=== PATIENT | female | born 1960 | race Two or more races ===

== ENCOUNTER → 2020-11-13 | Outpatient (CLI) | payer OTHER ==
[~2020-11-13] MED LIST: LIDOCAINE 1% Multi-Dose 20 ML VIAL. INJ ONE
--- NOTE | 2020-11-13 11:01 | RAD ---
EXAM: Sonographic guided right breast biopsy; sonographic guided right axillary lymph node biopsy; ri ght breast biopsy clip placement; right breast post plasty mammogram. HISTORY: 60-year-old female presents for sonographic guided biopsy of a right breast mass and suspici ous right axillary lymph node demonstrated on a study performed 09/25/2020. TECHNIQUE: The risks of the procedure discussed with the patient via an wastewater manager and written and v erbal consent was obtained. A timeout was performed. Sonographic imaging of the right breast and axil la was performed. The mass of concern at the 10:00 position 9 cm from the nipple and a lymph node wit h thickened cortex within the right axilla were identified. The skin overlying both locations was kostas rilely prepped, draped and infiltrated with 1 percent lidocaine. Multiple core samples were obtained through both lesions and biopsy clips were advanced into the biopsy beds. Manual compression was main tained until hemostasis was achieved. Sterile bandages were placed.. A post biopsy mammogram demonstr ates the biopsy clips in expected position. The patient tolerated the procedure without complication. IMPRESSION: Sonographic guided biopsy of a right breast mass at the 10:00 position 9 cm from the nipp le and right axillary lymph node with thickened cortex and biopsy clip placement. An addendum to this report will be submitted when pathology results are available. Electronically signed by: Dianna Hernandez MD (11/13/2020 10:58 AM) [id number]
--- NOTE | 2020-11-17 18:06 | PATHOLOGY ---
[facility] Accession Number: [id number] . 01 Material submitted: . PART A: breast - RIGHT BREAST MASS 10 O'CLOCK 9CM FN. Modifiers: right, 10:00, 9CM FN PART B: lymph node - RIGHT AXILLARY LYMPH NODE 1.0CM. Modifiers: right, axillary tail . 01 Clinical history: . A: OBTAINED 10:10, FORMALIN 10:10 B: OBTAINED 10:15, FORMALIN 10:15 BR MASS . 02 Diagnosis: A. Breast tissue, right breast mass 10:00, 9 cm from nipple needle biopsies: - Invasive ductal carcinoma, histologic grade 2. See comment. . B. Lymph node and fibroadipose tissue, right axillary lymph node needle biopsies: - Metastatic adenocarcinoma, with focal lymphovascular invasion. . Surgical Pathology Cancer Case Summary Protocol posting date: March 2019 INVASIVE CARCINOMA OF THE BREAST: Biopsy Procedure ___ Needle biopsy Specimen Laterality ___ Right Tumor Site ___ Clock position: 10 o'clock Tumor Size ___ Greatest dimension of largest invasive focus >1 mm: 17 mm Histologic Type ___ Invasive carcinoma of no special type (ductal) Histologic Grade ([place] Histologic Score) Glandular (Acinar)/Tubular Differentiation ___ Score 3 (<10% of tumor area forming glandular/tubular structures) . Nuclear Pleomorphism ___ Score 2 (cells larger than normal with open vesicular nuclei, visible nucleoli, and moderate variability in both size and shape) Mitotic Rate ___ Score 2 Overall Grade ___ Grade 2 (scores of 6 or 7) Ductal Carcinoma In Situ (DCIS) ___ Not identified Lymphovascular Invasion ___ Not identified Additional Pathologic Findings Specify: See diagnoses Microcalcifications ___ Present in invasive carcinoma (JPM:pit; 11/17/2020) QTP 11/17/2020 1727 Local . 02 Comment: Sections of the right breast mass at 10:00 needle biopsy reveal an invasive mammary carcinoma. Tumor cells are largely present in solid nests and cords but do show focal tubule formation. The tumor is associated with a prominent reactive desmoplastic stroma. Tumor cells show moderate nuclear pleomorphism. Mitotic figures are present with foci showing up to 2-3 mitotic figures per high power field. There is a rare tumor associated calcification. There is no lymphovascular tumor invasion. The invasive carcinoma measures up to 1.7 cm in greatest dimension on the glass slide. . Breast prognostic studies will be obtained on A2, the results of which will be reported separately. . Sections of the right axillary lymph node biopsy show metastatic adenocarcinoma with focal lymphovascular tumor invasion. . The case is also examined by Dr. Batista, who concurs with the diagnosis. . (JPM:pit; 11/17/2020) . 02 Electronically signed: . Jared Saldivar MD, Pathologist NPI- [id number] . 01 Gross description: . A. The specimen is received in formalin, labeled "HowellJanae, Right breast" and consists of 3 cat, fatty cylindrical tissues (ranging from 1.5 cm to 1.8 cm in length and each averaging 0.2 cm in diameter). The specimen is submitted in toto in A1-A3. The cold ischemic time is less than 60 seconds. The total time in formalin is 33 hours. . B. The specimen is received in formalin, labeled "HowellJanae, right axillary lymph node" and consists of 4 fatty and hemorrhagic cylindrical tissues (ranging in length from 0.6 cm to 1.3 cm and averaging 0.2 cm in diameter). The specimen is submitted in toto in B1-B3. The cold ischemic time is less than 60 seconds. The total time in formalin is 33 hours.(YAKUTAT; 11/14/2020) DKA/DKA 11/14/2020 1130 Local . 02 Pathologist provided ICD-10: C50.911, C77.3 . 02 CPT . 863050, [id number] Specimen Comment: A courtesy copy of this report has been sent to [phone], [phone] Specimen Comment: [id number] Specimen Comment: Report sent to / DR RAMOS Performed at: 01 [facility] [address], [place], [place] [id number] MD Evan Caruso MD Phone: [phone] Performed at: 02 [facility] [place] [address], [place] [id number] MD Jared Saldivar MD Phone: [phone]
== END | disposition home or self-care (01) ==
LOC: US 08:57
PROVIDERS: ATTEND Surgery
DX: N63.11 Unspecified lump in the right breast, upper outer quadrant (principal); C50.911 Malignant neoplasm of unspecified site of right female breast; C77.3 Secondary and unspecified malignant neoplasm of axilla and upper limb lymph nodes
CPT/HCPCS: 19083; 38505; 77065; 88305; 88361; C1819; 19084

== ENCOUNTER → 2020-12-24 | Outpatient (CLI) | payer OTHER ==
[~2020-12-24] MED LIST changes: +HYDR-2761 PO; -LIDOCAINE 1% Multi-Dose 20 ML VIAL. INJ ONE
[2020-12-24 10:39] LABS: BASO % 1 % (0-3); EOS # 0.1 x10^3/uL (0.0-0.7); EOS % 3 % (0-3); HEMATOCRIT 37.6 % (36.0-47.0); HEMOGLOBIN 12.9 g/dL (12.0-15.5); LYMPH # 1.1 x10^3/uL (1.0-4.8); LYMPH % 28 % (24-48); MEAN CORPUSCULAR HEMOGLOBIN 31 pg (25-35); MEAN CORPUSCULAR HGB CONC 34 g/dL (31-37); MEAN CORPUSCULAR VOLUME 89 fL (79-100); MONO # 0.3 x10^3/uL (0.0-1.1); MONO % 7 % (0-9); NEUT # 2.4 x10^3/uL (1.8-7.7); NEUT % 62 % (31-73); PLATELET COUNT 213 x10^3/uL (140-400); RED BLOOD COUNT 4.22 x10^6/uL (3.50-5.40); WHITE BLOOD COUNT 3.8 x10^3/uL (4.0-11.0)
[2020-12-24 10:47] LABS: CALCIUM 9.2 mg/dL (8.5-10.1); CREATININE 0.5 mg/dL (0.6-1.0); POTASSIUM 3.7 mmol/L (3.5-5.1)
[2020-12-24 10:53] LABS: ALBUMIN 3.7 g/dL (3.4-5.0); ALBUMIN/GLOBULIN RATIO 1.1 (1.0-1.7); TOTAL BILIRUBIN 0.3 mg/dL (0.2-1.0); TOTAL PROTEIN 7.1 g/dL (6.4-8.2)
== END ==
LOC: ONCLAB 15:57
PROVIDERS: ATTEND Internal Medicine Hematology & Oncology
DX: C50.411 Malignant neoplasm of upper-outer quadrant of right female breast (principal)
CPT/HCPCS: 36415; 80053; 85025

== ENCOUNTER 2020-12-31 09:18 | Day surgery (SDC) | payer MEDICAID ==
[~2020-12-31] VITALS: Ht 154.9 cm; Wt 74.5 kg
[~2020-12-31 09:18] MED LIST changes: +HEPARIN SODIUM 5,000 UNIT in IV NORMAL SALINE 500ML BAG 500 ML IRR ONE; +HYDROmorphone 2 MG/ML VIAL IVP PRN; +IV RINGERS,LACTATED 1000ML 1,000 ML IV SCH; +PROCHLORPERAZINE 10 MG/2 ML VIAL. IVP PRN; +ceFAZolin SODIUM IV Push 1 GM VIAL. IVP PRN; +fentaNYL PF VIAL 100 MCG/2 ML VIAL IVP PRN
[2020-12-31] MEDS ORDERED: BUPIVACAINE-EPI 0.5% 30 ML VIAL KIT. ONE (09:33)
[2020-12-31 09:56] VITALS: BP 143/75
--- NOTE | 2020-12-31 10:41 | PDOC1 ---
History and Physical Date of Admission Date of Admission DATE: 12/31/20 TIME: 10:38 History of Present Illness History of Present Illness The patient is a 60-year-old female with a history of advanced right breast cancer. The plan is for neoadjuvant chemotherapy and Port-A-Cath placement was requested. Past Medical History Past Medical History Breast cancer, obesity Social History Smoke: No ALCOHOL: none Current Medications Current Medications Current Medications Heparin Sodium (Porcine) 5000 unit/Sodium Chloride 505 ml @ 505 mls/hr 1X ONCE IRR ; Start 12/31/20 at 06:00; Stop 12/31/20 at 06:59; Status DC Fentanyl Citrate (Fentanyl 2ml Vial) 25 mcg PRN Q5MIN PRN IVP MILD PAIN 1-3; Start 12/31/20 at 06:00; Stop 12/31/20 at 20:00 Fentanyl Citrate (Fentanyl 2ml Vial) 50 mcg PRN Q5MIN PRN IVP MODERATE PAIN 4- 6; Start 12/31/20 at 06:00; Stop 12/31/20 at 20:00 Morphine Sulfate (Morphine Sulfate) 1 mg PRN Q10MIN PRN IVP SEVERE PAIN 7-10; Start 12/31/20 at 06:00; Stop 12/31/20 at 20:00 Ringer's Solution 1,000 ml @ 30 mls/hr Q24H IV Last administered on 12/31/20at 10:11; Start 12/31/20 at 06:00; Stop 12/31/20 at 17:59 Hydromorphone HCl (Dilaudid) 0.5 mg PRN Q10MIN PRN IVP SEVERE PAIN 7-10, 2nd CHOICE; Start 12/31/20 at 06:00; Stop 12/31/20 at 20:00 Prochlorperazine Edisylate (Compazine) 5 mg PACU PRN PRN IVP NAUSEA, MRX1; Start 12/31/20 at 06:00; Stop 12/31/20 at 20:00 Cefazolin Sodium (Ancef) 1 gm 1X PREOP PRN IVP PRIOR TO PROCEDURE; Start 12/31/20 at 06:00; Status Cancel Bupivacaine HCl/ Epinephrine Bitart (Sensorcain-Epi 0.5% Kit) 30 ml STK-MED ONCE .ROUTE ; Start 12/31/20 at 09:33; Stop 12/31/20 at 09:34; Status DC Cefazolin Sodium/ Dextrose 50 ml @ 100 mls/hr 1X PREOP PRN IV PRIOR TO PROCEDURE; Start 12/31/20 at 10:00; Stop 01/01/21 at 09:59 Active Scripts Active Reported Hydrocodone-Apap 5-325 (Hydrocodone Bit/Acetaminophen) 1 Tab Tablet 1 Tab PO PRN Q6HRS PRN Allergies Allergies: Coded Allergies: No Known Drug Allergies (Unverified , 12/31/20) ROS General: No: Chills, Night Sweats, Fatigue, Malaise, Appetite, Other PSYCHOLOGICAL ROS: No: Anxiety, Behavioral Disorder, Concentration difficultie, Decreased libido, Depression, Disorientation, Hallucinations, Hostility, Irritablity, Memory difficulties, Mood Swings, Obsessive thoughts, Physical abuse, Sexual abuse, Sleep disturbances, Suicidal ideation, Other ENDOCRINE: No: Breast Changes, Galactorrhea, Hair Pattern Changes, Hot Flashes, Malaise/lethargy, Mood Swings, Palpitations, Polydipsia/polyuria, Skin Changes, Temperature Intolerance, Unexpected Weight Changes, Other Breast: No New/Changing Breast Lumps, No Nipple changes, No Nipple discharge, No Other Cardiovascular: No Chest Pain, No Palpitations, No Orthopnea, No Paroxysmal Noc. Dyspnea, No Edema, No Lt Headedness, No Other Gastrointestinal: No Nausea, No Vomiting, No Abdominal Pain, No Diarrhea, No Constipation, No Melena, No Hematochezia, No Other Musculoskeletal: Yes Other (recent right arm fracture); No Gait Disturbance, No Joint Pain, No Joint Stiffness, No Joint Swelling, No Muscle Pain, No Muscular Weakness, No Pain In:, No Swelling In: Neurological: No Behavorial Changes, No Bowel/Bladder ControlChng, No Confusion, No Dizziness, No Gait Disturbance, No Headaches, No Impaired Coord/balance, No Memory Loss, No Numbness/Tingling, No Seizures, No Speech Problems, No Tremors, No Visual Changes, No Weakness, No Other Skin: No Dry Skin, No Eczema, No Hair Changes, No Lumps, No Mole Changes, No Mottling, No Nail Changes, No Pruritus, No Rash, No Skin Lesion Changes, No Other, No Acne Physical Exam General: Alert, Oriented X3, Cooperative HEENT: Atraumatic Lungs: Clear to auscultation Heart: RRR Abdomen: Soft, No tenderness Rectal Exam: not examined Extremities: No clubbing, No cyanosis Skin: No rashes Neuro: Normal speech Vitals Vitals Vital Signs Date Time Temp Pulse Resp B/P (MAP) Pulse Ox O2 Delivery O2 Flow Rate FiO2 12/31/20 10:08 97.6 64 18 143/75 97 Room Air 97.6 VTE Prophylaxis Ordered VTE Prophylaxis Devices: Yes VTE Pharmacological Prophylaxi: No Assessment/Plan Assessment/Plan 60-year-old female with breast cancer, plan for Port-A-Cath placement to allow for neoadjuvant chemotherapy. The details and risks of surgery were discussed with the patient. She understands and would like to proceed. Justifications for Admission Other Justification INDU RAMOS MD Dec 31, 2020 10:41
[2020-12-31] MEDS ORDERED: PROPOFOL 10 MG/ML (20ML) VIAL. IV ONE (11:00)
[2020-12-31] MEDS ORDERED: fentaNYL PF VIAL 100 MCG/2 ML VIAL ONE (11:00)
[2020-12-31] MEDS ORDERED: LIDOCAINE 2% PF 5 ML VIAL. ONE (11:00)
--- NOTE | 2020-12-31 12:54 | PDOC4 ---
Operative Note Operative Note Operative Note: Preoperative Diagnosis: Breast cancer Postoperative Diagnosis: Same Procedure: Placement of Power Port-A-Cath using SonoSite guidance Surgeon: Bola Program Technician: Wilber Artis MS4 Anesthesia: Gen. EBL: 10 mL Specimen: None Drains: None Complications: None Indication: The patient is a 60-year-old female recently diagnosed with right breast cancer. A request was made for placement of a Port-A-Cath to allow for chemotherapy treatment. The details and risks of the procedure were discussed. The risks include bleeding, infection, vessel injury, pneumothorax, pain, anesthetic risk, port, catheter or tubing malfunction or dysfunction, potential need for additional surgery or procedure. The patient understands and would like to proceed. Description: The patient was placed supine on the operating table and general anesthesia was performed. The bilateral neck and chest were prepped with ChloraPrep and draped in a standard surgical manner. With SonoSite ultrasound guidance the left internal jugular vein was readily identified and appeared patent. Entry was made into the vein with the skinny introducer needle under ultrasound guidance. I attempted to pass the skinny guidewire however after repeated attempts it appeared to meet resistance. We then moved to the right internal jugular vein. Entry was made into the right vein using SonoSite guidance with the introducer needle. The skinny guidewire passed readily into the central venous system. A small incision was made at the skin exit site. The skinny sheath was then placed over the guidewire. The larger guidewire was then placed within the sheath into the central venous system. Intraoperative fluoroscopy confirmed good position of the guidewire in the central venous system. The dilator and sheath were then placed over the guidewire. The catheter portion was then inserted into the central venous system and visualized using fluoroscopy. A separate right upper chest skin incision was made with a scalpel. A subcutaneous pocket was developed with cautery of sufficient size to accommodate the port. The catheter was then tunneled subcutaneously to the level of the newly formed pocket. Using fluoroscopy the catheter was positioned with the tip in the distal superior vena cava. The catheter was then cut and assembled to the port. The port was then secured to the chest wall with two 2-0 Prolene sutures. Using the Guardado needle the port readily aspirated and flushed without difficulty. Fluoroscopy confirmed good positioning of the catheter with no twists or kinks. The subcutaneous tissue was approximated with 3-0 Vicryl. The skin was then closed with 4-0 Monocryl. A sterile OpSite dressing was then applied. The patient tolerated the procedure well and was sent to the recovery room in stable condition. At the end of the case all counts were correct. INDU RAMOS MD Dec 31, 2020 12:54
[2020-12-31] MEDS ORDERED: HYDR-2761 PO (12:56)
--- NOTE | 2020-12-31 12:59 | DISCH ---
DISCHARGE INSTRUCTIONS Condition on Discharge Condition on Discharge: Stable Activity After Discharge Activity Instructions for Disc: Activity as tolerated Diet after Discharge Diet after Discharge: Regular Wound Incision Care Wound/Incision Care: Other, see below (keep dressing clean and dry) Follow-Up Follow up with: Oncology, call for appointment INDU RAMOS MD Dec 31, 2020 12:58
[2020-12-31] MEDS ORDERED: MORPHINE SULFATE 2 MG/ML INJ. ONE (13:06)
[2020-12-31] MEDS: MORPHINE SULFATE 2 MG/ML INJ. IVP PRN ×2 (13:09→13:19)
[2020-12-31] MEDS ORDERED: HYDROmorphone 2 MG/ML VIAL ONE (13:12)
[2020-12-31] MEDS ORDERED: PROCHLORPERAZINE 10 MG/2 ML VIAL. ONE (13:12)
--- NOTE | 2020-12-31 13:20 | RAD ---
Single view of the chest. 12/31/2020 12:58 PM Indication: Reason: portacath placement, please do in PACU / Comparison: Chest radiograph July 09, 2011 Findings: There is a right internal jugular port with tip in superior vena cava. No pneumothorax is s een. No pleural effusion is identified. There is central vascular congestion and interstitial thicken ing. Findings most likely represent pulmonary edema. An atypical or viral infectious process could be considered in the appropriate setting. No acute osseous changes are seen. IMPRESSION: 1. Right internal jugular port with tip in the superior vena cava 2. Central vascular congestion and interstitial thickening. Favor pulmonary edema over an atypical or viral infectious process Electronically signed by: Ger Lynch MD (12/31/2020 1:18 PM) [id number]
[2020-12-31] MEDS ORDERED: HYDROcodone/APAP 5/325MG 1 TAB TABLET ONE (13:39)
[2020-12-31] MEDS ORDERED: HYDROcodone/APAP 5/325MG 1 TAB TABLET PO ONE (13:45)
[2020-12-31 14:00] VITALS: BP 145/65
[2021-01-07] MEDS ORDERED: POLY17PO52 PO (15:09)
[2021-01-07] MEDS ORDERED: CHOL5000 PO (15:14)
[2021-01-07] MEDS ORDERED: HYDR-2761 PO (15:14)
[2021-01-07] MEDS ORDERED: ANAS1TAB47 PO (15:15)
[2021-01-07] MEDS ORDERED: MELO15TA6 PO (15:20)
[2021-01-07] MEDS ORDERED: OXYC1TAB19 PO (16:00)
== END 2020-12-31 14:31 | disposition home or self-care (01) ==
LOC: SURG 09:18
PROVIDERS: ATTEND Surgery
DX: Z45.2 Encounter for adjustment and management of vascular access device (principal); C50.911 Malignant neoplasm of unspecified site of right female breast; F41.9 Anxiety disorder, unspecified; F32.9 Major depressive disorder, single episode, unspecified; E66.9 Obesity, unspecified; Z87.891 Personal history of nicotine dependence; Z79.899 Other long term (current) drug therapy; Z90.49 Acquired absence of other specified parts of digestive tract; Z98.890 Other specified postprocedural states
CPT/HCPCS: 36561; 71045; 77001; A4364; A4930; A6254; A6258; C1788; C1892; J0690; J0780; J1170; J1644; J2270; J2704; J3010; J7040; 76000; A4452; A4657

== ENCOUNTER → 2021-01-12 | Outpatient (CLI) | payer MEDICAID ==
[2021-01-06 11:12] VITALS: BP 125/73
[~2021-01-12] MED LIST changes: +ANAS1TAB47 PO; +CHOL5000 PO; -HEPARIN SODIUM 5,000 UNIT in IV NORMAL SALINE 500ML BAG 500 ML IRR ONE; -HYDROmorphone 2 MG/ML VIAL IVP PRN; -IV RINGERS,LACTATED 1000ML 1,000 ML IV SCH; +MELO15TA6 PO; +OXYC1TAB19 PO; +POLY17PO52 PO; -PROCHLORPERAZINE 10 MG/2 ML VIAL. IVP PRN; -ceFAZolin SODIUM IV Push 1 GM VIAL. IVP PRN; -fentaNYL PF VIAL 100 MCG/2 ML VIAL IVP PRN
[2021-01-12 11:34] LABS: BASO % 1 % (0-3); EOS # 0.1 x10^3/uL (0.0-0.7); EOS % 3 % (0-3); HEMATOCRIT 26.2 % (36.0-47.0); HEMOGLOBIN 8.7 g/dL (12.0-15.5); LYMPH # 1.2 x10^3/uL (1.0-4.8); LYMPH % 30 % (24-48); MEAN CORPUSCULAR HEMOGLOBIN 30 pg (25-35); MEAN CORPUSCULAR HGB CONC 33 g/dL (31-37); MEAN CORPUSCULAR VOLUME 90 fL (79-100); MONO # 0.3 x10^3/uL (0.0-1.1); MONO % 8 % (0-9); NEUT # 2.3 x10^3/uL (1.8-7.7); NEUT % 59 % (31-73); PLATELET COUNT 349 x10^3/uL (140-400); RED BLOOD COUNT 2.91 x10^6/uL (3.50-5.40); RED CELL DISTRIBUTION WIDTH 12.7 % (11.5-14.5)
[2021-01-12 11:35] LABS: CALCIUM 8.8 mg/dL (8.5-10.1); CREATININE 0.6 mg/dL (0.6-1.0); GFR 101.3
[2021-01-12 11:42] LABS: ALBUMIN 2.9 g/dL (3.4-5.0); ALBUMIN/GLOBULIN RATIO 0.9 (1.0-1.7); TOTAL BILIRUBIN 0.4 mg/dL (0.2-1.0); TOTAL PROTEIN 6.2 g/dL (6.4-8.2)
== END ==
LOC: ONCLAB 10:47
PROVIDERS: ATTEND Physician Assistant
DX: C50.411 Malignant neoplasm of upper-outer quadrant of right female breast (principal)
CPT/HCPCS: 36415; 80053; 85025; 86300